=== PATIENT | male | born 1970 | race Caucasian/White ===

== ENCOUNTER 2017-10-14 20:27 | Emergency (ER) ==
[2017-10-14 20:29] VITALS: BP 149/101; TEMP 98.8; BMI 33.1
[2017-10-14] MEDS ORDERED: DECADRON 4 MG/ML SDV IM STA (20:36)
[2017-10-14] MEDS ORDERED: COLCRYS PO STA (20:36)
--- NOTE | 2017-10-14 21:10 | DI ---
EXAM: Three views of the left ankle. History: Left ankle pain and swelling. Findings: No acute fracture or dislocation. Small ossific density seen adjacent to the medial malle olus either represents old trauma or accessory ossicle. Joint spaces are relatively preserved. Mild subcutaneous edema at the ankle and foot. Impression: 1. No acute osseous abnormality. 2. Mild subcutaneous edema
--- NOTE | 2017-10-14 22:08 | ED.PDOC ---
General ED Provider: Dr. SIENA ONOFRE-ER Chief Complaint: Ankle Pain/Injury Stated Complaint: my ankle is swollen and it hurts--denies any hx of trauma Time Seen by Physician: 20:30 Mode of Arrival: Walk-In Information Source: Patient Exam Limitations: No limitations Nursing and Triage Documentation Reviewed and Agree: Yes Reviewed sepsis parameters & appropriate labs ordered?: Yes System Inflammatory Response Syndrome: Not Applicable Sepsis Protocol: For patient's 13 years and over: Temp is 96.8 and below OR 101 and greater Pulse >90 BPM Resp >20/minute Acutely Altered Mental Status Are patient's symptoms suggestive of a new infection, such as: -Pneumonia -Skin, Soft Tissue -Endocarditis -UTI -Bone, Joint Infection -Implantable Device -Acute Abdominal Infection -Wound Infection -Meningitis -Blood Stream Catheter Infection -Unknown Musculoskeletal Complaint Exam - Lower Extremity Complaint/Exam Location of Pain: Reports: Left, Ankle Mechanism of Injury: Reports: No known trauma Onset/Duration: several hours Symptoms Are: Still present Onset of Pain: Reports: Immediate Initial Severity: Mild Current Severity: Mild Location: Reports: Discrete Character: Reports: Dull, Aching Aggravating: Reports: Movement, Weight bearing Able to Bear Weight: Yes Associated Signs and Symptoms: Reports: Swelling Lower Extremity Findings: Present: Swelling, Tenderness, Limited range of motion NV Bundle Intact Distal to Injury: Yes Compartment Syndrome Risk Factors: Present: Pain Landon's Sign Present: No Differential Diagnoses: Arthritis, Contusion, Strain, Sprain Review of Systems - Review Of Systems Constitutional: Reports: No symptoms Eyes: Reports: No symptoms Ears, Nose, Mouth, Throat: Reports: No symptoms Respiratory: Reports: No symptoms Cardiac: Reports: No symptoms GI: Reports: No symptoms : Reports: No symptoms Musculoskeletal: Reports: Joint pain, Joint swelling Skin: Reports: No symptoms Neurological: Reports: No symptoms Endocrine: Reports: No symptoms Hematologic/Lymphatic: Reports: Swollen glands All Other Systems: Reviewed and Negative Past Medical History - Past Medical History Previously Healthy: Yes Endocrine: Reports: None Cardiovascular: Reports: None Respiratory: Reports: COPD Hematological: Reports: None Gastrointestinal: Reports: None, Other (has had hemorroidal symptoms) Genitourinary: Reports: None Neuro/Psych: Reports: None Musculoskeletal: Reports: Unknown Cancer: Reports: None Other Pertinent Past Medical History: lymphoma removed - Surgical History General Surgical History: Reports: Other - Family History Family History: Reports: Cancer (mother dies of unkown cancer in her 60s) - Social History Smoking Status: Current every day smoker Hx Substance Use: No Alcohol Screening: None - Immunizations Tetanus Shot up to Date: No Physical Exam - Physical Exam Appearance: Well-appearing Eyes: HETAL, EOMI, Conjunctiva clear ENT: Ears normal Neck: Supple Respiratory: Airway patent, Breath sounds clear, Breath sounds equal, Respirations nonlabored Cardiovascular: RRR, Pulses normal, No rub, No murmur GI/: Soft Musculoskeletal: Limited ROM Skin: Warm Neurological: Sensation intact, Motor intact, Reflexes intact, Cranial nerves intact, Alert, Oriented Psychiatric: Affect appropriate, Mood appropriate, Anxious Interpretation - Radiology Interpretation Radiology Interpretation By: Radiologist Radiology Results: Negative Critical Care Note - Critical Care Note Total Time (mins): 0 Course - Course Hematology/Chemistry: 10/14/17 20:50 10/14/17 20:50 Orders, Labs, Meds: Lab Review 10/14/17 10/14/17 10/14/17 20:50 20:50 20:50 WBC 12.85 H RBC 4.73 Hgb 14.4 Hct 42.2 MCV 89.2 MCH 30.4 MCHC 34.1 RDW Coeff of Orin 13.1 Plt Count 370 Immature Gran % (Auto) 0.2 Neut % (Auto) 70.9 Lymph % (Auto) 21.3 Marin % (Auto) 6.7 Eos % (Auto) 0.6 Baso % (Auto) 0.3 Immature Gran # (Auto) 0.0 Neut # (Auto) 9.1 H Lymph # (Auto) 2.7 Marin # (Auto) 0.9 Eos # (Auto) 0.1 Baso # (Auto) 0.0 ESR 10 Sodium 142 Potassium 3.3 L Chloride 104 Carbon Dioxide 29 Anion Gap 12.3 BUN 17 Creatinine 1.10 Estimated GFR (MDRD) 71.00 BUN/Creatinine Ratio 15.45 Glucose 145 H Uric Acid Calcium 9.6 10/14/17 20:50 WBC RBC Hgb Hct MCV MCH MCHC RDW Coeff of Orin Plt Count Immature Gran % (Auto) Neut % (Auto) Lymph % (Auto) Marin % (Auto) Eos % (Auto) Baso % (Auto) Immature Gran # (Auto) Neut # (Auto) Lymph # (Auto) Marin # (Auto) Eos # (Auto) Baso # (Auto) ESR Sodium Potassium Chloride Carbon Dioxide Anion Gap BUN Creatinine Estimated GFR (MDRD) BUN/Creatinine Ratio Glucose Uric Acid 5.3 Calcium Orders Category Date Time Status BASIC METABOLIC PANEL Stat LAB 10/14/17 20:50 Completed CBC W/ AUTO DIFF Stat LAB 10/14/17 20:50 Completed ESR Stat LAB 10/14/17 20:50 Completed HEMOGLOBIN A1C Stat LAB 10/14/17 20:50 Received URIC ACID Stat LAB 10/14/17 20:50 Completed Colchicine [Colcrys] MEDS 10/14/17 20:36 Discontinued 1.2 mg PO ONCE STA Dexamethasone 4 mg/ml Inj [Decadron 4 mg/ml Sdv] MEDS 10/14/17 20:36 Discontinued 8 mg IM ONCE STA ANKLE, LEFT MIN 3 VIEWS Stat RADS 10/14/17 20:34 Completed Medications Discontinued Medications Generic Name Dose Route Start Last Admin Trade Name Freq PRN Reason Stop Dose Admin Colchicine 1.2 mg 10/14/17 20:36 10/14/17 21:11 Colcrys PO 10/14/17 20:37 1.2 mg ONCE STA Administration Dexamethasone Sodium Phosphate 8 mg 10/14/17 20:36 10/14/17 21:12 Decadron 4 Mg/Ml Sdv IM 10/14/17 20:37 8 mg ONCE STA Administration Vital Signs: Temp Pulse Resp BP Pulse Ox 10/14/17 20:27 98.8 F 124 H 18 149/101 H 97 Departure - Departure Time of Disposition: 22:07 Disposition: HOME SELF-CARE Discharge Problem: Ankle pain Instructions: Swollen Joint (ED) Condition: Good Pt referred to PMD for follow-up: Yes IPMP verified?: No Additional Instructions: medrol dose pack--f/u with pcp Allergies/Adverse Reactions: Allergies No Known Allergies Allergy (Verified 10/14/17 20:29) Home Medications: Ambulatory Orders 1 [No Reported Medications] 10/14/17 Disposition Discussed With: Patient
== END 2017-10-14 22:15 | disposition home or self-care (01) ==
LOC: ED 20:27
DX: M25.572 Pain in left ankle and joints of left foot (principal); M25.472 Effusion, left ankle; F17.210 Nicotine dependence, cigarettes, uncomplicated
CPT/HCPCS: 36415; 80048; 83036; 84550; 85025; 85651; 96372; 99283

== ENCOUNTER 2018-02-03 13:04 | Emergency (ER) ==
[2018-02-03 13:12] VITALS: BP 135/86; TEMP 97; BMI 33.4
--- NOTE | 2018-02-03 14:44 | ED.PDOC ---
General ED Provider: Dr. SIENA GURROLA Chief Complaint: Weakness Stated Complaint: Dry cough, weakness, fatigue. Just doesn't feel right. Works at [employer]. Has shoulder pain and seen by PCP on Wednesday and administer injection into [place]. Started feeling very poorly the next day with flu symptoms, sore throat and generalized aching. Time Seen by Physician: 14:10 Mode of Arrival: Walk-In Information Source: Patient Exam Limitations: No limitations Primary Care Provider: CRISTINA HOUGH Nursing and Triage Documentation Reviewed and Agree: Yes Does patient meet sepsis criteria?: No System Inflammatory Response Syndrome: Not Applicable Sepsis Protocol: For patient's 13 years and over: Temp is 96.8 and below OR 101 and greater Pulse >90 BPM Resp >20/minute Acutely Altered Mental Status Are patient's symptoms suggestive of a new infection, such as: -Pneumonia -Skin, Soft Tissue -Endocarditis -UTI -Bone, Joint Infection -Implantable Device -Acute Abdominal Infection -Wound Infection -Meningitis -Blood Stream Catheter Infection -Unknown Respiratory Complaint Exam - Respiratory Complaint/Exam Onset/Duration: 24 hrs Symptoms Are: Still present Timing: Constant Initial Severity: Moderate Current Severity: Moderate Character: Reports: Dry cough Aggravating: Reports: None Alleviating: Reports: None Associated Signs and Symptoms: Reports: Decreased oral intake Related Surgical History: Reports: Defibrillator Pulmonary Embolism Risk Factors: None Pseudomonas Risk Factors: Reports: None Status Asthmaticus Risk Factors: Reports: Recent steriods Current Asthma Medication Use: No Respiratory Distress: None Dysphagia Present: No Stridor Present: No JVD Present: No Review of Systems - Review Of Systems Constitutional: Reports: Malaise, Weakness, Loss of appetite Eyes: Reports: No symptoms Ears, Nose, Mouth, Throat: Reports: No symptoms, Throat pain Respiratory: Reports: Cough, Short of air Cardiac: Reports: No symptoms GI: Reports: No symptoms : Reports: No symptoms Musculoskeletal: Reports: No symptoms, Back pain, Joint pain, Muscle pain Skin: Reports: No symptoms Neurological: Reports: No symptoms Endocrine: Reports: No symptoms Hematologic/Lymphatic: Reports: No symptoms All Other Systems: Reviewed and Negative Past Medical History - Past Medical History Previously Healthy: Yes Endocrine: Reports: None Cardiovascular: Reports: None Respiratory: Reports: COPD Hematological: Reports: None Gastrointestinal: Reports: None, Other (has had hemorroidal symptoms) Genitourinary: Reports: None Neuro/Psych: Reports: None Musculoskeletal: Reports: Unknown Cancer: Reports: None Other Pertinent Past Medical History: lymphoma removed - Surgical History General Surgical History: Reports: Other - Family History Family History: Reports: Cancer (mother dies of unkown cancer in her 60s) - Social History Smoking Status: Current every day smoker, Heavy tobacco smoker Hx Substance Use: No Alcohol Screening: None - Immunizations Tetanus Shot up to Date: No Physical Exam - Physical Exam Appearance: Obese Ill-appearing: Mild Pain Distress: None Eyes: HETAL, EOMI, Conjunctiva clear ENT: Ears normal, Nose normal, Erythema (pharynx) Neck: Supple (pos lymphadenopathy) Respiratory: Airway patent, Breath sounds clear, Breath sounds equal, Respirations nonlabored Cardiovascular: RRR, Pulses normal, No rub, No murmur GI/: Soft, Nontender, No masses, Bowel sounds normal, No Organomegaly Musculoskeletal: Normal strength, ROM intact, No edema, No calf tenderness Skin: Warm, Dry, Normal color Neurological: Sensation intact, Motor intact, Reflexes intact, Cranial nerves intact, Alert, Oriented Psychiatric: Affect appropriate, Mood appropriate, Anxious Interpretation - Radiology Interpretation Radiology Interpretation By: Radiologist Radiology Results: No acute changes Re-Evaluation - Re-Evaluation Time of Re-Evaluation: 18:30 Status: Improved Vital Signs Stable: Yes Appearance: NAD Lungs: Clear Skin: Warm and Dry Neuro: Alert and Oriented X3 CV: RRR Critical Care Note - Critical Care Note Total Time (mins): 120 Course - Course Hematology/Chemistry: 02/03/18 14:55 02/03/18 14:55 Orders, Labs, Meds: Lab Review 02/03/18 02/03/18 02/03/18 14:50 14:55 14:55 WBC 19.93 H RBC 5.12 Hgb 15.4 Hct 45.3 MCV 88.5 MCH 30.1 MCHC 34.0 RDW Coeff of Orin 13.1 Plt Count 263 Immature Gran % (Auto) 0.4 Neut % (Auto) 85.8 Lymph % (Auto) 6.8 L Bryan % (Auto) 6.6 Eos % (Auto) 0.1 Baso % (Auto) 0.3 Immature Gran # (Auto) 0.1 Neut # (Auto) 17.1 H Lymph # (Auto) 1.4 Bryan # (Auto) 1.3 Eos # (Auto) 0.0 Baso # (Auto) 0.1 ESR Sodium 135.4 L Potassium 3.91 Chloride 100.1 Carbon Dioxide 28.5 Anion Gap 10.71 BUN 15.4 Creatinine 0.95 Estimated GFR (MDRD) 84.00 BUN/Creatinine Ratio 16.21 Glucose 113.8 H Calcium 9.36 Total Bilirubin 0.77 AST 21.8 ALT 15.9 Alkaline Phosphatase 80.6 Total Protein 7.98 Albumin 4.60 Globulin 3.38 Albumin/Globulin Ratio 1.36 Amylase Lipase Influ A Molecular Assay Negative by naat Influ B Molecular Assay Negative by naat 02/03/18 02/03/18 14:55 14:55 WBC RBC Hgb Hct MCV MCH MCHC RDW Coeff of Orin Plt Count Immature Gran % (Auto) Neut % (Auto) Lymph % (Auto) Bryan % (Auto) Eos % (Auto) Baso % (Auto) Immature Gran # (Auto) Neut # (Auto) Lymph # (Auto) Bryan # (Auto) Eos # (Auto) Baso # (Auto) ESR 20 H Sodium Potassium Chloride Carbon Dioxide Anion Gap BUN Creatinine Estimated GFR (MDRD) BUN/Creatinine Ratio Glucose Calcium Total Bilirubin AST ALT Alkaline Phosphatase Total Protein Albumin Globulin Albumin/Globulin Ratio Amylase 60.5 Lipase 53.6 Influ A Molecular Assay Influ B Molecular Assay Orders Category Date Time Status EKG-(ED ONLY) Stat CARDIO 02/03/18 14:45 Completed IV [ED IV/MEDIPORT/POWERPORT] .ONCE EMERGENCY 02/03/18 16:45 Active AMYLASE Stat LAB 02/03/18 14:55 Completed CBC W/ AUTO DIFF Stat LAB 02/03/18 14:55 Completed CMP [COMPREHENSIVE METABOLIC PANEL] Stat LAB 02/03/18 14:55 Completed ESR Stat LAB 02/03/18 14:55 Completed FLU A & B MOLECULAR [FLU A/B MOLECULAR] Stat LAB 02/03/18 14:50 Completed LIPASE Stat LAB 02/03/18 14:55 Completed RAPID STREP SCREEN [MOLECULAR GROUP A STREP] Stat LAB 02/03/18 14:50 Completed UA [URINALYSIS C & S IF INDICATED] Stat LAB 02/03/18 16:19 Uncollected URINE DRUG SCREEN (RAPID FOR ED) [DRUG SCREEN, URINE, LAB 02/03/18 16:19 Uncollected RAPID] Stat 0.9 % Sodium Chloride [Saline Flush] MEDS 02/03/18 16:44 Ordered 1 syr IVF PRN PRN Famotidine Inj [Pepcid] MEDS 02/03/18 16:46 Discontinued 20 mg IVP ONCE STA Ondansetron HCl/Pf [Zofran 4 mg/2 ml] MEDS 02/03/18 16:45 Discontinued 4 mg IVP ONCE STA Sodium Chloride 0.9% [Sodium Chloride] 1,000 ml MEDS 02/03/18 16:45 Discontinued IV BOLUS Sodium Chloride 0.9% [Sodium Chloride] 1,000 ml MEDS 02/03/18 17:36 Discontinued IV BOLUS CHEST, 1V AP ONLY Stat RADS 02/03/18 14:45 Completed Medications Generic Name Dose Route Start Last Admin Trade Name Freq PRN Reason Stop Dose Admin Sodium Chloride 1 syr 02/03/18 16:44 Saline Flush IVF PRN PRN To flush IV Discontinued Medications Generic Name Dose Route Start Last Admin Trade Name Freq PRN Reason Stop Dose Admin Famotidine 20 mg 02/03/18 16:46 02/03/18 18:04 Pepcid IVP 02/03/18 16:47 20 mg ONCE STA Administration Sodium Chloride 1,000 mls @ 500 mls/hr 02/03/18 16:45 02/03/18 18:05 Sodium Chloride IV 02/03/18 18:44 Not Given BOLUS STA Sodium Chloride 1,000 mls @ 1,000 mls/hr 02/03/18 17:36 02/03/18 18:04 Sodium Chloride IV 02/03/18 17:44 1,000 mls/hr BOLUS STA Administration Ondansetron HCl 4 mg 02/03/18 16:45 02/03/18 18:04 Zofran 4 Mg/2 Ml IVP 02/03/18 16:46 4 mg ONCE STA Administration Vital Signs: Temp Pulse Resp BP Pulse Ox 02/03/18 13:06 97.0 F L 97 H 18 135/86 96 Departure - Departure Time of Disposition: 18:40 Disposition: HOME SELF-CARE Discharge Problem: Acute streptococcal tonsillitis, Fatigue Instructions: Tonsillitis (ED), Strep Throat (ED), Dehydration (ED) Condition: Fair Pt referred to PMD for follow-up: Yes IPMP verified?: No Additional Instructions: Take antibiotics as directed Stay well hydrated Follow up pcp in 5-7 days Prescriptions: Penicillin V Potassium 500 mg PO Q6HR #40 tablet Ondansetron HCl [Zofran Tab] 4 mg PO Q8H #10 tablet Allergies/Adverse Reactions: Allergies No Known Allergies Allergy (Verified 02/03/18 13:05) Home Medications: Ambulatory Orders Ondansetron HCl [Zofran Tab] 4 mg PO Q8H #10 tablet 02/03/18 Penicillin V Potassium 500 mg PO Q6HR #40 tablet 02/03/18 Disposition Discussed With: Patient
--- NOTE | 2018-02-03 15:15 | DI ---
EXAM: Single AP view of the chest HISTORY: cough. COMPARISON: Chest x-ray 07/05/2014 and multiple priors FINDINGS: Cardiomediastinal silhouette is normal. There is no pneumothorax or pleural effusion. The re is no consolidation, nodule or mass. The osseous structures are unremarkable. IMPRESSION: No acute cardiopulmonary process.
[2018-02-03] MEDS ORDERED: SODIUM CHLORIDE 1,000 ML IV STA ×2 (16:45→17:36)
[2018-02-03] MEDS ORDERED: ZOFRAN 4 MG/2 ML IVP STA (16:45)
[2018-02-03] MEDS ORDERED: PEPCID IVP STA (16:46)
== END 2018-02-03 18:48 | disposition home or self-care (01) ==
LOC: ED 13:04
DX: R53.1 Weakness (principal); R53.83 Other fatigue; R05 Cough; M25.511 Pain in right shoulder; J02.9 Acute pharyngitis, unspecified; J03.00 Acute streptococcal tonsillitis, unspecified
CPT/HCPCS: 36415; 80053; 82150; 83690; 85025; 85651; 87502; 87651; 93005; 93010; 96361; 96374; 96375; 99283